=== PATIENT | male | born 1985 | race Caucasian/White ===

== ENCOUNTER 2017-06-20 08:23 | Inpatient (IN) | payer OTHER ==
[2017-06-20] VITALS (7 sets, daily range): BP systolic 113–144; BP diastolic 46–91
[~2017-06-20] VITALS: Ht 167.6 cm; Wt 68.0 kg
--- NOTE | 2017-06-20 08:33 | NUR ---
32/M BIBA FROM HOME CALLED BY FATHER C/O not feeling well SINCE last night. PT STS FEELING worse today. BS in field 480 and repeat 568. PRE-HOSPITAL IV 22G NOTED TO NELI, 100ML NS GIVEN IN FIELD. PT C/O sob, tachypnea. HX autism, dm, hyperlipidemia. MEDS lipitor, buspirone, klonopin, vasotec, synthroid, coreg, wellbutrin, fluvoxamine. NO MEDS FOR DM NOTED IN PT'S BAG. DENIES N/V/D; SKIN IS PINK/WARM/DRY; AAOX3; LUNGS CLEAR BL BUT PT TACHYPNEIC; HR TACHYCARDIC; PT DENIES ANY FEVER, OR CP AT THIS TIME; VSS; PATIENT POSITIONED FOR COMFORT; HOB ELEVATED; BEDRAILS UP X2; BED DOWN. ER MD MADE AWARE OF PT STATUS.
--- NOTE | 2017-06-20 08:40 | NUR ---
URINAL GIVEN FOR SAMPLE.
[2017-06-20] MEDS ORDERED: LIP80 PO (08:43)
[2017-06-20] MEDS ORDERED: BUS5 PO (08:43)
[2017-06-20] MEDS ORDERED: SYN.075 PO (08:43)
[2017-06-20] MEDS ORDERED: CARV25TA PO (08:43)
[2017-06-20] MEDS ORDERED: [UNRECOGNIZED DRUG - CODE] PO (08:43)
[2017-06-20] MEDS ORDERED: BUPR-10 PO (08:43)
[2017-06-20] MEDS ORDERED: CLON0.5T PO (08:43)
[2017-06-20] MEDS ORDERED: VAS2.5 PO (08:43)
[2017-06-20 08:57] LABS: HEMATOCRIT 46.5 % (36-52); HEMOGLOBIN 14.8 g/dL (12.0-18.0); MEAN CORPUSCULAR HEMOGLOBIN 28 pg (27-31); MEAN CORPUSCULAR HGB CONC 32 g/dL (33-37); MEAN CORPUSCULAR VOLUME 88 fL (80-94); PLATELET COUNT (AUTO) 392 K/uL (140-450); RED BLOOD CELL COUNT(AUTO) 5.29 MIL/uL (4.20-6.10); RED CELL DISTRIBUTION WIDTH 12.7 % (11.6-13.7); WHITE BLOOD COUNT (AUTO) 26.5 K/uL (4.8-10.8)
[2017-06-20] MEDS ORDERED: NACL 0.9% 1,000 ML IV ONE ×3 (09:15→09:45)
[2017-06-20 09:20] LABS: ALBUMIN 4.1 g/dL (3.4-5.0); ANION GAP 43.6 (8-16); CREATININE 2.5 mg/dL (0.7-1.3); EOSINOPHILS % (MANUAL) 1 % (0-4); LYMPHOCYTES % (MANUAL) 14 % (20-46); MONOCYTES % (MANUAL) 2 % (5-12); POTASSIUM 5.2 mmol/L (3.5-5.1); TOTAL BILIRUBIN 0.5 mg/dL (0.0-1.0)
[2017-06-20 09:30] LABS: CARBON DIOXIDE 6.6 mmol/L (21-32)
--- NOTE | 2017-06-20 09:30 | NUR ---
EKG AT BEDSIDE.
[2017-06-20] MEDS ORDERED: INSULIN HUMAN REGULAR 100 UNITS in NACL 0.9% 100 ML IV ONE (09:40)
--- NOTE | 2017-06-20 10:10 | NUR ---
# 14 FR IN AND OUTH catheter with sterile technique. Immediate return of 230 ml YELLOW urine noted. Bedside drainage bag placed below level of bladder. Urine sample collected and sent to lab. Pt tolerated procedure WELL.
--- NOTE | 2017-06-20 10:15 | NUR ---
INSULIN DRIP AT 5UNITS 5M/HR PER ORDER.
[2017-06-20 10:18] LABS: APPEARANCE,URINE CLEAR (CLEAR); BILIRUBIN,URINE 2+ (NEGATIVE); BLOOD, URINE 1+ (NEGATIVE); COLOR,URINE YELLOW (YELLOW); LEUKOCYTE ESTERASE ,URINE NEGATIVE (NEGATIVE); NITRITE, URINE NEGATIVE (NEGATIVE); PH,URINE 5.5 (5.0-9.0); UGLUCOSE 2+ (NEGATIVE)
[2017-06-20 10:33] LABS: RBC,URINE 3-10 (FEW) /HPF (0-5)
[2017-06-20 10:34] LABS: WBC,URINE 0-5 (RARE) /HPF (0-5)
--- NOTE | 2017-06-20 10:35 | NUR ---
1L VIA N/C TO PT FOR COMFORT MEASURES.
[2017-06-20] MEDS ORDERED: HUM SUBQ (10:38)
[2017-06-20] MEDS ORDERED: LANTUS SUBQ (10:40)
[2017-06-20] MEDS ORDERED: BLOOD GLUCOSE MONITORING 1 DEV DEV FS SCH (10:50)
[2017-06-20] MEDS ORDERED: INSULIN HUMAN REGULAR 100 UNITS in NACL 0.9% 100 ML IV SCH (10:50)
[2017-06-20] MEDS ORDERED: DEXTROSE 50% 50 ML SYR IVP PRN (10:50)
[2017-06-20] MEDS ORDERED: BUPROPION HCL 75 MG PO SCH (11:00)
--- NOTE | 2017-06-20 11:05 | NUR ---
ADMITTED PT FROM ER BY ALAN, PT AWAKE, ALERT, AND ORIENTED. BEDSIDE MONITOR SHOWS [facility] O2 NC 1L/MIN. NO S/S OF RESPIRATORY DISTRESS NOTED. LUNG SOUND CLEAR, ABDOMEN SOFT WITH ACTIVE BOWEL SOUND, PT ABLE TO MOVE ALL HIS EXTREMITIES, PT ON INSULIN DRIP 5 UNITS/HR, POC EXPLAINED TO PT, PT VERBALIZED UNDERSTANDING. CALL LIGHT IN REACH, WILL CONTINUE TO MONITOR.
[2017-06-20] MEDS ORDERED: NACL 0.9% 500 ML IV ONE (11:15)
[2017-06-20 11:21] LABS: FREE T4 (FREE THYROXINE) 1.09 ng/dL (0.76-1.46); THYROID STIMULATING HORMONE 1.36 uIU/mL (0.34-3.74)
[2017-06-20] MEDS: BLOOD GLUCOSE MONITORING 1 DEV DEV FS SCH ×13 (11:25→23:54)
[2017-06-20] MEDS: INSULIN HUMAN REGULAR 100 UNITS in NACL 0.9% 100 ML IV SCH (11:28)
[2017-06-20] MEDS ORDERED: LORazepam 2 MG/ML VIAL IVP SCH ×2 (11:31→12:15)
[2017-06-20 11:38] LABS: BARBITURATE, URINE NEG. ng/ml (NEG <=200); BENZODIAZEPINE, URINE NEG. ng/mL (NEG <=200); CANNABINOID, URINE NEG. ng/mL (NEG <=50); COCAINE, URINE NEG. ng/mL (NEG <=300); OPIATE, URINE NEG. ng/mL (NEG <=2000); PHENCYCLIDINE SCREEN,URINE NEG. ng/mL (NEG <=25)
--- NOTE | 2017-06-20 11:54 | NUR ---
DR.ANITA NAILS STARTED TO INSERT CENTRAL LINE TLC RIJ.TIME OUT DONE
--- NOTE | 2017-06-20 12:15 | NUR ---
UNABLE TO CHECK 1215 FINGER BLOOD SUGAR DUE TO THE CENTRAL LINE INSERTION IS IN PROGRESS.
[2017-06-20 12:46] LABS: ANION GAP 36.3 (8-16); POTASSIUM 5.4 mmol/L (3.5-5.1)
[2017-06-20 12:49] LABS: CARBON DIOXIDE 6.1 mmol/L (21-32)
[2017-06-20 12:50] LABS: MAGNESIUM 2.2 mg/dL (1.8-2.4); PHOSPHORUS 5.5 mg/dL (2.5-4.9)
--- NOTE | 2017-06-20 13:12 | NUR ---
CENTRAL LINE INSERTION DONE, X-RAY TECH AT BEDSIDE.
[2017-06-20] MEDS: NACL 0.9% 1,000 ML IV SCH ×2 (13:15→19:02)
--- NOTE | 2017-06-20 15:00 | NUR ---
1415 FINGER BLOOD SUGAR WAS UNABLE TO BE CHECKED ON TIME DUE TO ACCU-CHECK MACHINE UNABLE TO SCAN PT'S [place]. THEN WENT TO LAB TO REPLACE ANOTHER ACCU-CHECK MACHINE, THIS MACHINE SHUT DOWN AUTOMATICALLY, WENT TO OR TO BORROW ONE ACCU-CHECK MACHINE.
--- NOTE | 2017-06-20 15:45 | NUR ---
PT'S FATHER AT BEDSIDE.
[2017-06-20 16:21] LABS: ANION GAP 30.3 (8-16); CREATININE 1.7 mg/dL (0.7-1.3); POTASSIUM 4.6 mmol/L (3.5-5.1)
[2017-06-20 16:28] LABS: CARBON DIOXIDE 8.3 mmol/L (21-32)
[2017-06-20 16:31] LABS: PHOSPHORUS 3.5 mg/dL (2.5-4.9)
[2017-06-20 17:24] LABS: CHOL/HDL RATIO 2.5 (1-4.5)
--- NOTE | 2017-06-20 19:09 | NUR ---
VBG DONE BY RT VALERIO WITH HELP OF DENILSON VALENZUELA. VBG DRAWN FROM CVP LINE BY DENILSON VALENZUELA. RN NOTIFIED WITH RESULTS BY RT VALERIO.
--- NOTE | 2017-06-20 19:09 | NUR ---
RECEIVED LAB REPORT HCO3 6.1, CALLED RESIDENT OFFICE [phone] NO ANSWER, PAGED [phone], WILL FOLLOW UP.
--- NOTE | 2017-06-20 19:25 | NUR ---
CALLED RESIDENT OFFICE [phone] AGAIN, NOTIFIED HCO3 6.1, PER DR. FLAHERTY ,SHE WILL CHECK PT.
--- NOTE | 2017-06-20 20:00 | NUR ---
REPORT TAKEN FROM DAY NURSE WITH RES[facility]ARE
--- NOTE | 2017-06-20 20:26 | NUR ---
CALLED ADMITTING OFFICE, NOTIFIED THEM PT DOES NOT HAVE PT'S RIGHT IN THE CHART.
[2017-06-20] MEDS ORDERED: FLUVOXAMINE MALEATE 200 MG PO SCH (21:00)
[2017-06-20] MEDS: clonazePAM 0.5 MG TAB PO SCH (21:00)
--- NOTE | 2017-06-20 21:00 | NUR ---
DUE MEDICATION GIVEN NEEDED
[2017-06-20 21:32] LABS: ANION GAP 27.6 (8-16); CREATININE 1.6 mg/dL (0.7-1.3); POTASSIUM 4.3 mmol/L (3.5-5.1)
[2017-06-20 21:33] LABS: CARBON DIOXIDE 9.7 mmol/L (21-32)
[2017-06-20 21:34] LABS: MAGNESIUM 1.9 mg/dL (1.8-2.4); PHOSPHORUS 3.3 mg/dL (2.5-4.9)
--- NOTE | 2017-06-20 22:00 | NUR ---
REPOSITION DONE , INSULIN INFUSION IN PROGRESS,
[2017-06-21] VITALS (12 sets, daily range): BP systolic 113–149; BP diastolic 71–94
--- NOTE | 2017-06-21 | NUR ---
PT 'S ASLEEP, ACCU CHECK DON , INSULIN INFUSION INPROGRESS.
[2017-06-21] MEDS: busPIRone 5 MG TAB PO SCH ×3 (00:01→20:57)
[2017-06-21] MEDS: NACL 0.9% 1,000 ML IV SCH ×5 (00:02→20:42)
[2017-06-21] MEDS: BLOOD GLUCOSE MONITORING 1 DEV DEV FS SCH ×24 (00:30→23:19)
[2017-06-21 00:43] LABS: ANION GAP 25.6 (8-16); CARBON DIOXIDE 10.5 mmol/L (21-32); CREATININE 1.4 mg/dL (0.7-1.3); POTASSIUM 4.1 mmol/L (3.5-5.1)
[2017-06-21 00:48] LABS: MAGNESIUM 1.8 mg/dL (1.8-2.4)
--- NOTE | 2017-06-21 02:00 | NUR ---
RE POSITION DONE , VOIDED WITH TOTAL URINE OUT PUT 1000 MLS , YELLOW COLOR NOTED
--- NOTE | 2017-06-21 04:00 | NUR ---
REPOSITION DONE, DUE ACCU CHECK DONE
--- NOTE | 2017-06-21 06:00 | NUR ---
ACCU CHECK DONE .EDUCATED NEEDED
[2017-06-21] MEDS: LEVOTHYROXINE 0.075 MG TAB PO SCH (06:30)
--- NOTE | 2017-06-21 07:15 | NUR ---
REPORT ENDORSE TO DAY NURSE WITH [facility]
--- NOTE | 2017-06-21 07:25 | NUR ---
CONTINUITY OF CARE REPORTED TO CRYSTAL OREILLY. PATIENT IN STABLE CONDITION. Addendum: 06/21/17 at 1018 by Lucretia Jimenez RN WRONG CHARTING
--- NOTE | 2017-06-21 07:30 | NUR ---
RECEIVED A REPORT FROM DENILSON FARIAS. PT IS ALERT AND ABLE TO MAKE NEEDS KNOWN. DENIES ANY PAIN OR DISCOMFORT AT THIS TIME. ST ON THE MONITOR. NO S/SX OF ACUTE DISTRESS NOTED. SKIN WARM TO TOUCH. IV SITE TO RT IJ [id number] AND LT HAND #22G. PATENT AND INTACT. CONTINUE ON INSULIN DRIP ORDERED. ON SCD FOR VTE PROPHYLAXIS. SAFETY PRECAUTION. BED IN LOW POSITION, CALL LIGHT WITHIN REACH. WILL CONTINUE TO MONITOR.
[2017-06-21] MEDS ORDERED: DOCUSATE SODIUM 250 MG GELCAP PO PRN (07:35)
[2017-06-21 07:39] LABS: T3 UPTAKE 30 % (24-39); T4 (THYROXINE) 6.4 ug/dL (4.5-12.0)
--- NOTE | 2017-06-21 07:52 | NUR ---
RESIDENT PHYSICIAN DR. NAILS MADE AWARE OF ABG REPORT, HCO3 11.2. NO NEW ORDERS MADE AT THIS TIME.
[2017-06-21] MEDS: DEXT 5% / NACL 0.45% 1,000 ML IV SCH ×3 (08:00→17:00)
[2017-06-21 08:08] LABS: BASOPHILS # (AUTO) 0.2 K/uL (0.00-0.22); EOSINOPHILS # (AUTO) 0.1 K/uL (0-0.4); EOSINOPHILS % (AUTO) 0.7 % (0.0-4.0); HEMATOCRIT 37.3 % (36-52); HEMOGLOBIN 12.2 g/dL (12.0-18.0); LYMPHOCYTES # (AUTO) 1.4 K/uL (2.0-11.5); LYMPHOCYTES % (AUTO) 11.9 % (20.5-51.1); MEAN CORPUSCULAR HEMOGLOBIN 28 pg (27-31); MEAN CORPUSCULAR HGB CONC 33 g/dL (33-37); MEAN CORPUSCULAR VOLUME 87 fL (80-94); MONOCYTES # (AUTO) 1.1 K/uL (0.8-1.0); MONOCYTES % (AUTO) 9.1 % (1.7-9.3); NEUTROPHILS # (AUTO) 8.9 K/uL (1.8-7.7); NEUTROPHILS % (AUTO) 76.3 % (42.2-75.2); PLATELET COUNT (AUTO) 268 K/uL (140-450); RED BLOOD CELL COUNT(AUTO) 4.31 MIL/uL (4.20-6.10); RED CELL DISTRIBUTION WIDTH 12.6 % (11.6-13.7); WHITE BLOOD COUNT (AUTO) 11.7 K/uL (4.8-10.8)
--- NOTE | 2017-06-21 08:13 | NUR ---
PATIENT HAS BEEN SCREENED AND CATEGORIZED HIGH RISK. PATIENT WILL BE SEEN WITHIN 1-2 DAYS OF REFERRAL. 06/22/[address]
--- NOTE | 2017-06-21 08:15 | NUR ---
DR. RAMÍREZ AND GROUP ROUNDING ON THE PATIENT AT THIS TIME. WILL FOLLOW UP WITH NEW ORDERS.
[2017-06-21 08:20] LABS: ANION GAP 21.2 (8-16); CARBON DIOXIDE 13.6 mmol/L (21-32); CREATININE 1.4 mg/dL (0.7-1.3); POTASSIUM 3.8 mmol/L (3.5-5.1)
--- NOTE | 2017-06-21 08:30 | NUR ---
PT RECEIVED BREAKFAST TRAY AND ATE 90%.
--- NOTE | 2017-06-21 08:30 | NUR ---
DR. RAMÍREZ MADE AWARE OF GLUCOSE LEVEL OF 190. INSULIN DRIP KEPT ON 1 UNIT/HR.
[2017-06-21] MEDS: ATORVASTATIN 80 MG TAB PO SCH (08:33)
[2017-06-21] MEDS: clonazePAM 0.5 MG TAB PO SCH ×2 (08:35→20:58)
[2017-06-21] MEDS: CARVEDILOL 12.5 MG TAB PO SCH (08:36)
[2017-06-21] MEDS: ENALAPRIL 2.5 MG TAB PO SCH (08:36)
--- NOTE | 2017-06-21 08:40 | NUR ---
PT TOLERATED MEDICATION WELL. WILL CONTINUE TO MONITOR
--- NOTE | 2017-06-21 09:32 | NUR ---
INSULIN DRIP INCREASED TO 2 UNITS/HR. BLOOD SUGAR 236
--- NOTE | 2017-06-21 10:15 | NUR ---
DR. RAMÍREZ AT BEDSIDE AND WILL FOLLOW UP ON ORDERS
--- NOTE | 2017-06-21 10:18 | NUR ---
CONTINUITY OF CARE REPORTED TO CRYSTAL OREILLY. PATIENT IN STABLE CONDITION.
--- NOTE | 2017-06-21 10:48 | NUR ---
06/21/17 RD INITIAL ASSESSMENT COMPLETED PLEASE REFER TO NUTRITION ASSESSMENT UNDER CARE ACTIVITY FOR ESTIMATED NEEDS. RECOMMENDATIONS: 1. CONTINUE 60GM CCHO DIET TOLERATED. 2. RD WILL FOLLOW UP IN 2-3 DAYS; HIGH RISK. KARLIE ACEVEDO RD
--- NOTE | 2017-06-21 11:26 | NUR ---
DR. APARICIO AT BEDSIDE AND WILL FOLLOW UP ON ORDERS
[2017-06-21 12:09] LABS: BASOPHILS # (AUTO) 0.2 K/uL (0.00-0.22); BASOPHILS % (AUTO) 1.7 % (0.0-2.0); EOSINOPHILS # (AUTO) 0.1 K/uL (0-0.4); EOSINOPHILS % (AUTO) 1.1 % (0.0-4.0); HEMOGLOBIN 12.3 g/dL (12.0-18.0); LYMPHOCYTES # (AUTO) 1.7 K/uL (2.0-11.5); LYMPHOCYTES % (AUTO) 15.1 % (20.5-51.1); MEAN CORPUSCULAR HEMOGLOBIN 29 pg (27-31); MEAN CORPUSCULAR HGB CONC 33 g/dL (33-37); MEAN CORPUSCULAR VOLUME 86 fL (80-94); MONOCYTES # (AUTO) 0.7 K/uL (0.8-1.0); MONOCYTES % (AUTO) 6.5 % (1.7-9.3); NEUTROPHILS # (AUTO) 8.7 K/uL (1.8-7.7); NEUTROPHILS % (AUTO) 75.6 % (42.2-75.2); PLATELET COUNT (AUTO) 250 K/uL (140-450); RED BLOOD CELL COUNT(AUTO) 4.29 MIL/uL (4.20-6.10); RED CELL DISTRIBUTION WIDTH 12.8 % (11.6-13.7); WHITE BLOOD COUNT (AUTO) 11.4 K/uL (4.8-10.8)
[2017-06-21 12:17] LABS: ANION GAP 19.4 (8-16); CARBON DIOXIDE 15.2 mmol/L (21-32); CREATININE 1.4 mg/dL (0.7-1.3); POTASSIUM 3.6 mmol/L (3.5-5.1)
[2017-06-21 12:20] LABS: MAGNESIUM 2.1 mg/dL (1.8-2.4)
--- NOTE | 2017-06-21 12:30 | NUR ---
PT RECEIVED LUNCH TRAY AND ATE 50%
--- NOTE | 2017-06-21 13:00 | NUR ---
PT'S FAMILY AT BEDSIDE AND UPDATED PT'S STATUS.
[2017-06-21] MEDS ORDERED: PATIENTS OWN TABLET PO SCH (13:05)
[2017-06-21] MEDS ORDERED: buPROPion 75 MG TAB PO SCH (13:05)
[2017-06-21] MEDS ORDERED: PNEUMOCOCCAL VACCINE 23 MCG/0.5 ML VIAL IMVAC SCH (13:15)
--- NOTE | 2017-06-21 14:58 | NUR ---
PT IS ASLEEP, EASILY AWAKE TO VOICE. NO S/SX OF ACUTE RESPIRATORY DISTRESS.
--- NOTE | 2017-06-21 17:20 | NUR ---
DR. DIAL AT BEDSIDE AND WILL FOLLOW UP ON ORDERS. PT IS STABLE. PROVIDED DINNER TRAY.
--- NOTE | 2017-06-21 17:53 | NUR ---
PT REFUSED BED BATH AND ORAL CARE.
[2017-06-21 18:45] LABS: ANION GAP 15.2 (8-16); CARBON DIOXIDE 18.2 mmol/L (21-32); CREATININE 1.3 mg/dL (0.7-1.3); MAGNESIUM 1.9 mg/dL (1.8-2.4); PHOSPHORUS 1.9 mg/dL (2.5-4.9); POTASSIUM 3.4 mmol/L (3.5-5.1)
--- NOTE | 2017-06-21 18:58 | NUR ---
PT SLEEPING IN BED BUT EASILY AWAKING BY ASSESSMENT, NO S/S OF RESPIRATORY DISTRESS NOTED. SAFETY MAINTAINED, PT VERBALIZED HE FEELS OK, CALL LIGHT IN REACH.
--- NOTE | 2017-06-21 19:20 | NUR ---
REPORT GIVEN TO DENILSON PHILIPPE. PT STABLE
--- NOTE | 2017-06-21 19:35 | NUR ---
PATIENT IS AWAKE, ORIENTED TO PERSON, PLACE, DATE AND TIME. SKIN WARM TO TOUCH WNL, TOENAILS WNL, NO EDEMA, WITH HAIR GROWTH AND +2 BILATERAL PEDAL PULSES. RIJ CENTRAL LINE PATENT AND INTACT. ON INSULIN DRIP AT 3 UNITS/H. URINE AND BOWEL CONTINENT, ABLE TO MAKE NEEDS KNOWN. ABLE TO TURN SELF WITH NO ASSISTANCE. ON ROOM AIR. CALL LIGHT WITHIN REACH. WILL MONITOR PATIENT.
--- NOTE | 2017-06-21 19:35 | NUR ---
ASSUMED CONTINUITY OF CARE FROM DAY SHIFT NURSE. PATIENT IN STABLE CONDITION.
[2017-06-21] MEDS: FLUVOXAMINE MALEATE PO SCH (20:58)
[2017-06-21] MEDS ORDERED: COMMUNICATION ORDER MC SCH (21:00)
[2017-06-21] MEDS ORDERED: SODIUM PHOS / POTASSIUM PHOS 1 PKT PDR PO SCH (21:00)
[2017-06-21] MEDS ORDERED: SODIUM PHOS / POTASSIUM PHOS 1 PKT PDR ONE (21:09)
[2017-06-21 21:10] LABS: ANION GAP 14.5 (8-16); CARBON DIOXIDE 17.7 mmol/L (21-32); CREATININE 1.3 mg/dL (0.7-1.3); MAGNESIUM 1.9 mg/dL (1.8-2.4); PHOSPHORUS 1.8 mg/dL (2.5-4.9); POTASSIUM 3.2 mmol/L (3.5-5.1)
--- NOTE | 2017-06-21 21:10 | NUR ---
PATIENT'S FAMILY AT BEDSIDE AT THIS TIME.
--- NOTE | 2017-06-21 21:14 | NUR ---
BLOOD SUGAR 266. INSULIN DRIP KEPT AT 3 UNITS/H.
[2017-06-21] MEDS: INSULIN HUMAN REGULAR 100 UNITS in NACL 0.9% 100 ML IV SCH (21:38)
--- NOTE | 2017-06-21 22:20 | NUR ---
BS 248. INSULIN DRIP DECREASED TO 2 UNITS/HR.
--- NOTE | 2017-06-21 22:42 | NUR ---
PATIENT APPEARS TO BE SLEEPING COMFORTABLY AT THIS TIME.
[2017-06-22] VITALS (10 sets, daily range): BP systolic 102–148; BP diastolic 70–86
[2017-06-22] MEDS: BLOOD GLUCOSE MONITORING 1 DEV DEV FS SCH ×18 (00:20→23:40)
[2017-06-22 00:36] LABS: ANION GAP 13.4 (8-16); CARBON DIOXIDE 18.7 mmol/L (21-32); CREATININE 1.2 mg/dL (0.7-1.3); POTASSIUM 3.1 mmol/L (3.5-5.1)
[2017-06-22 00:41] LABS: PHOSPHORUS 1.9 mg/dL (2.5-4.9)
[2017-06-22] MEDS ORDERED: POTASSIUM PHOSPHATE 15 MM in NACL 0.9% 250 ML IV ONE ×2 (00:55→09:35)
--- NOTE | 2017-06-22 02:15 | NUR ---
RESIDENT PHYSICIAN DR DIAL MADE AWARE THAT POTASSIUM PHOS IS NOT AVAILABLE AT THIS TIME, STATED THAT WILL HOLD OFF ON THE ORDER AND WILL MONITOR LABS FOR NOW.
--- NOTE | 2017-06-22 04:11 | NUR ---
PATIENT IS COMFORTABLY RESTING AT THIS TIME.
[2017-06-22 04:40] LABS: HEMATOCRIT 31.7 % (36-52); HEMOGLOBIN 10.3 g/dL (12.0-18.0); MEAN CORPUSCULAR HEMOGLOBIN 28 pg (27-31); MEAN CORPUSCULAR HGB CONC 33 g/dL (33-37); MEAN CORPUSCULAR VOLUME 86 fL (80-94); PLATELET COUNT (AUTO) 199 K/uL (140-450); RED BLOOD CELL COUNT(AUTO) 3.68 MIL/uL (4.20-6.10); RED CELL DISTRIBUTION WIDTH 12.9 % (11.6-13.7); WHITE BLOOD COUNT (AUTO) 6.8 K/uL (4.8-10.8)
[2017-06-22 04:47] LABS: ANION GAP 11.7 (8-16); CARBON DIOXIDE 20.3 mmol/L (21-32)
[2017-06-22 04:51] LABS: MAGNESIUM 1.9 mg/dL (1.8-2.4); PHOSPHORUS 1.9 mg/dL (2.5-4.9)
[2017-06-22 04:56] LABS: BASOPHILS % (MANUAL) 1 % (0-2); EOSINOPHILS % (MANUAL) 1 % (0-4); LYMPHOCYTES % (MANUAL) 23 % (20-46); MONOCYTES % (MANUAL) 10 % (5-12)
--- NOTE | 2017-06-22 05:20 | NUR ---
BS 187. INSULIN DRIP DECREASED TO 1 UNIT/HR.
[2017-06-22] MEDS: NACL 0.9% 1,000 ML IV SCH ×3 (05:25→20:55)
--- NOTE | 2017-06-22 05:26 | NUR ---
MORNING CARE RENDERED. ENCOURAGED AND ASSISTED PATIENT TO GET OUT OF BED, PATIENT TOLERATED WELL.
[2017-06-22] MEDS: DEXT 5% / NACL 0.45% 1,000 ML IV SCH (06:03)
[2017-06-22] MEDS: LEVOTHYROXINE 0.075 MG TAB PO SCH (06:10)
[2017-06-22] MEDS ORDERED: KCL 20 MEQ/WATER INJ PREMIX 200 ML IV SCH (06:15)
[2017-06-22] MEDS ORDERED: BISACODYL 10 MG SUPP RC SCH (06:35)
--- NOTE | 2017-06-22 07:00 | NUR ---
PATIENT REFUSED DULCOLAX, STATED THAT HE WANTS TO TRY TO USE THE COMMODE FIRST. WILL ENDORSE THE AM SHIFT.
--- NOTE | 2017-06-22 07:20 | NUR ---
REPORT GIVEN TO AM RN FOR CONTINUITY OF CARE. PATIENT IN STABLE CONDITION.
--- NOTE | 2017-06-22 07:20 | NUR ---
RECEIVED A REPORT FROM DENILSON VELASQUEZ. PT IS ALERT AND ABLE TO MAKE NEEDS KNOWN. DENIES ANY PAIN OR DISCOMFORT AND NO S/SX OF ACUTE DISTRESS NOTED. SR ON THE MONITOR. USING OF URINAL FOR URINATION. ON INSULIN DRIP ORDERED. IV SITE TO RIGHT IJ 3X LUMENS. PATENT AND INTACT. SKIN WARM TO TOUCH. ABLE TO MOVE ALL EXTREMITIES. SAFETY PRECAUTION. BED IN LOW POSITION AND CALL LIGHT WITHIN REACH. WILL CONTINUE TO MONITOR.
[2017-06-22] MEDS: FLUVOXAMINE MALEATE PO SCH ×2 (08:05→20:27)
[2017-06-22] MEDS: CARVEDILOL 12.5 MG TAB PO SCH (08:05)
[2017-06-22] MEDS: clonazePAM 0.5 MG TAB PO SCH ×2 (08:06→20:31)
[2017-06-22] MEDS: ENALAPRIL 2.5 MG TAB PO SCH (08:08)
[2017-06-22] MEDS: busPIRone 5 MG TAB PO SCH ×2 (08:08→20:26)
[2017-06-22] MEDS: ATORVASTATIN 80 MG TAB PO SCH (08:09)
[2017-06-22] MEDS: buPROPion 75 MG TAB PO SCH (08:09)
[2017-06-22 08:11] LABS: CARBON DIOXIDE 19.3 mmol/L (21-32); CREATININE 1.1 mg/dL (0.7-1.3); POTASSIUM 3.3 mmol/L (3.5-5.1)
[2017-06-22 08:16] LABS: MAGNESIUM 1.9 mg/dL (1.8-2.4); PHOSPHORUS 1.7 mg/dL (2.5-4.9)
[2017-06-22] MEDS ORDERED: buPROPion 150 MG TABER PO SCH (09:00)
[2017-06-22] MEDS ORDERED: INSULIN DETEMIR 100 UNITS/ML 10 ML VIAL SUBQ SCH (09:00)
--- NOTE | 2017-06-22 09:00 | NUR ---
PT TOLERATED MEDICATIONS WELL. WILL CONTINUE TO MONITOR
--- NOTE | 2017-06-22 11:03 | NUR ---
PT STABLE, NO S/SX OF ACUTE DISTRESS. WILL CONTINUE TO MONITOR
[2017-06-22] MEDS ORDERED: BLOOD GLUCOSE MONITORING 1 DEV DEV FS SCH (11:30)
[2017-06-22 12:37] LABS: CARBON DIOXIDE 20.7 mmol/L (21-32); CREATININE 0.9 mg/dL (0.7-1.3); POTASSIUM 3.7 mmol/L (3.5-5.1)
[2017-06-22 12:41] LABS: MAGNESIUM 1.9 mg/dL (1.8-2.4); PHOSPHORUS 2.1 mg/dL (2.5-4.9)
--- NOTE | 2017-06-22 12:48 | NUR ---
PT IS EATING LUNCH AND PT'S MOTHER IS AT BEDSIDE.
--- NOTE | 2017-06-22 13:40 | NUR ---
ECHOCARDIOGRAM DONE AT BEDSIDE. PT STABLE AND NO S/SX OF ACUTE DISTRESS.
--- NOTE | 2017-06-22 14:19 | NUR ---
DR. NAILS AT BEDSIDE AND WILL FOLLOW UP ON ORDERS
--- NOTE | 2017-06-22 14:31 | NUR ---
PT'S MOTHER WAS INFORMED THAT PT WILL BE TRANSFERRED TO TELE UNIT TODAY.
[2017-06-22] MEDS: INSULIN LISPRO SLIDING SCALE 100 UNITS/ML VIAL SUBQ PRN ×2 (16:00→20:32)
--- NOTE | 2017-06-22 16:20 | NUR ---
PT TRANSFERRED TO TELEMETRY UNIT AND REPORT GIVEN TO DENILSON STODDARD. PT STABLE, NO S/SX OF ACUTE DISTRESS.
--- NOTE | 2017-06-22 16:25 | NUR ---
RECEIVED REPORT FROM DENILSON GUERRIER.
--- NOTE | 2017-06-22 16:50 | NUR ---
RECEIVED TRANSFER PATIENT FROM ICU. ASSISTED IN TRANSFERRING PATIENT INTO [facility] BED, HE WAS ABLE TO SCOOT OVER TO BED BY HIMSELF. TOLERATED WELL. ALERT AND ORIENTED X4. NO SIGNS AND SYMPTOMS OF DISTRESS NOTED AT THIS TIME. HAS LEFT IJ TRIPLE LUMEN AND IS INFUSING NS AT 125 ML/HR. SITE IS CLEAN, DRY AND INTACT. HAS AN IV SALINE LOCK ON RIGHT HAND 22G, CLEAN, DRY AND PATENT. PATIENT SKIN IS INTACT. NO SIGNS AND SYMPTOMS OF RESPIRATORY DISTRESS NOTED, LUNG SOUNDS ARE CLEAR. ABDOMINAL QUADRANTS ACTIVE UPON AUSCULTATION. ORIENTED PATIENT TO ROOM, INSTRUCTED CHAIR LIFT OPERATOR LIGHT, PLACED WITHIN REACH, BED AT LOWEST POSITION, HOB AT 45 DEGREES, SIDERAILS UP X2, PATIENT VERBALIZED UNDERSTANDING. WILL CONTINUE TO MONITOR.
--- NOTE | 2017-06-22 19:15 | NUR ---
ENDORSED PATIENT TO EMERGENCY ROOM SPECIALIST RN. PATIENT STABLE AT THIS TIME. FAMILY IS AT BEDSIDE.
--- NOTE | 2017-06-22 19:20 | NUR ---
RECEIVED REPORT FROM DAY SHIFT NURSE AT PT BEDSIDE. PT IS A/OX4 ON ROOM AIR, PT HAS 20 GAUGE IV ON HIS RIGHT HAND, SL INTACT, AND A RIGHT IJ TRIPLE LUMEN INFUSING NS@125ML/HR, ASYMPTOMATIC AND INTACT. PT SKIN IS INTACT. NO SIGNS OF DISTRESS NOTED, DISCUSSED PLAN OF CARE WITH PT, PT VERBALIZED UNDERSTANDING, PT MOTHER IS AT BEDSIDE. BED IN LOW POSITION, CALL LIGHT IS WITHIN REACH. WILL CONTINUE TO MONITOR.
--- NOTE | 2017-06-22 20:40 | NUR ---
ADMINISTERED SCHEDULED MEDICATIONS. PT TOLERATED WELL. PT STABLE, NO SIGNS OF DISTRESS NOTED. BED IN LOW POSITION, CALL LIGHT IS WITHIN REACH. WILL CONTINUE TO MONITOR.
[2017-06-22 21:37] LABS: ANION GAP 17.6 (8-16); CARBON DIOXIDE 16.8 mmol/L (21-32); CREATININE 0.9 mg/dL (0.7-1.3); POTASSIUM 3.4 mmol/L (3.5-5.1)
[2017-06-22 21:40] LABS: MAGNESIUM 1.7 mg/dL (1.8-2.4)
--- NOTE | 2017-06-22 22:00 | NUR ---
MAHOGANY BLOOD FROM PATIENT'S IJ TRIPLE LUMEN CATH FOR INSPECTOR TOOL. PT TOLERATED WELL. PT STABLE, NO SIGNS OF DISTRESS NOTED. BED IN LOW POSITION, CALL LIGHT IS WITHIN REACH. WILL CONTINUE TO MONITOR.
[2017-06-23] VITALS: BP 129/78
--- NOTE | 2017-06-23 00:15 | NUR ---
PT BLOOD SUGAR 281, WILL GIVE 6 UNITS OF INSULIN. PT IS STABLE, NO SIGNS OF DISTRESS NOTED. BED IN LOW POSITION, CALL LIGHT IS WITHIN REACH. WILL CONTINUE TO MONITOR.
[2017-06-23] MEDS: INSULIN LISPRO SLIDING SCALE 100 UNITS/ML VIAL SUBQ PRN ×4 (00:50→20:32)
--- NOTE | 2017-06-23 02:40 | NUR ---
PT RESTING, SLEEPING, FREE OF DISTRESS. PT STABLE. BED IN LOW POSITION, CALL LIGHT WITHIN REACH. WILL CONTINUE TO MONITOR.
[2017-06-23 04:00] VITALS: BP 138/80
[2017-06-23] MEDS: BLOOD GLUCOSE MONITORING 1 DEV DEV FS SCH ×5 (04:08→20:08)
--- NOTE | 2017-06-23 04:18 | NUR ---
ADMINISTERED 4 MORE UNITS OF INSULIN FOR BLOOD SUGAR OF 202. VITAL SIGNS WNL. PT RESTING, FREE OF DISTRESS. PT STABLE. BED IN LOW POSITION, CALL LIGHT WITHIN REACH. WILL CONTINUE TO MONITOR.
--- NOTE | 2017-06-23 05:11 | NUR ---
MAHOGANY BLOOD FROM PATIENT'S IJ TRIPLE LUMEN CATH FOR SUPERVISOR ROUGH END. PT TOLERATED WELL. PT STABLE, NO SIGNS OF DISTRESS NOTED. BED IN LOW POSITION, CALL LIGHT IS WITHIN REACH. WILL CONTINUE TO MONITOR.
[2017-06-23] MEDS: NACL 0.9% 1,000 ML IV SCH ×3 (05:23→21:08)
[2017-06-23] MEDS: LEVOTHYROXINE 0.075 MG TAB PO SCH (06:04)
[2017-06-23 06:05] LABS: BASOPHILS # (AUTO) 0.1 K/uL (0.00-0.22); BASOPHILS % (AUTO) 2.3 % (0.0-2.0); EOSINOPHILS # (AUTO) 0.2 K/uL (0-0.4); EOSINOPHILS % (AUTO) 3.9 % (0.0-4.0); HEMATOCRIT 32.1 % (36-52); HEMOGLOBIN 10.3 g/dL (12.0-18.0); LYMPHOCYTES # (AUTO) 1.8 K/uL (2.0-11.5); MEAN CORPUSCULAR HEMOGLOBIN 28 pg (27-31); MEAN CORPUSCULAR HGB CONC 32 g/dL (33-37); MEAN CORPUSCULAR VOLUME 87 fL (80-94); MONOCYTES # (AUTO) 0.5 K/uL (0.8-1.0); MONOCYTES % (AUTO) 9.4 % (1.7-9.3); NEUTROPHILS # (AUTO) 3.2 K/uL (1.8-7.7); NEUTROPHILS % (AUTO) 53.4 % (42.2-75.2); PLATELET COUNT (AUTO) 184 K/uL (140-450); RED BLOOD CELL COUNT(AUTO) 3.68 MIL/uL (4.20-6.10); RED CELL DISTRIBUTION WIDTH 12.8 % (11.6-13.7); WHITE BLOOD COUNT (AUTO) 5.8 K/uL (4.8-10.8)
--- NOTE | 2017-06-23 06:18 | NUR ---
PT STABLE, NO SIGNS OF DISTRESS NOTED. BED IN LOW POSITION, CALL LIGHT IS WITHIN REACH. WILL CONTINUE TO MONITOR.
[2017-06-23 06:21] LABS: ANION GAP 14.8 (8-16); CARBON DIOXIDE 20.3 mmol/L (21-32); CREATININE 0.8 mg/dL (0.7-1.3); POTASSIUM 3.1 mmol/L (3.5-5.1)
[2017-06-23 06:26] LABS: MAGNESIUM 1.6 mg/dL (1.8-2.4); PHOSPHORUS 2.5 mg/dL (2.5-4.9)
[2017-06-23] MEDS ORDERED: KCL 20 MEQ/WATER INJ PREMIX 200 ML IV SCH (07:30)
--- NOTE | 2017-06-23 07:30 | NUR ---
ENDORSED PT TO DAY SHIFT RN AT BEDSIDE FOR CONTINUITY OF CARE. PT IS STABLE.
[2017-06-23 08:35] VITALS: BP 146/85
[2017-06-23] MEDS: ENALAPRIL 2.5 MG TAB PO SCH (09:45)
--- NOTE | 2017-06-23 09:45 | NUR ---
PATIENT AWAKE ALERT AND ORIENTED. VITAL SIGNS WITHIN NORMAL LIMITS, PATIENT DENIES PAIN OR DISCOMFORT. GIVEN AM INSULIN PER ORDER
[2017-06-23] MEDS: busPIRone 5 MG TAB PO SCH ×2 (09:46→20:28)
[2017-06-23] MEDS: buPROPion 75 MG TAB PO SCH (09:46)
[2017-06-23] MEDS: ATORVASTATIN 80 MG TAB PO SCH (09:46)
[2017-06-23] MEDS: FLUVOXAMINE MALEATE PO SCH ×2 (09:51→21:00)
[2017-06-23] MEDS: clonazePAM 0.5 MG TAB PO SCH ×2 (09:57→20:31)
[2017-06-23] MEDS: INSULIN DETEMIR 100 UNITS/ML 10 ML VIAL SUBQ SCH (09:58)
[2017-06-23] MEDS ORDERED: CARVEDILOL 12.5 MG TAB PO SCH (12:27)
[2017-06-23 12:33] VITALS: BP 147/97
--- NOTE | 2017-06-23 12:45 | NUR ---
BLOOD SUGAR AT 347 GIVEN 8UNITS HUMALOG COVERAGE PER ORDER
[2017-06-23] MEDS ORDERED: MAG SULF 2000 MG/WATER PREMIX 100 ML IV SCH (15:00)
[2017-06-23] MEDS ORDERED: LORazepam 2 MG/ML VIAL IVP PRN (16:10)
[2017-06-23 17:00] VITALS: BP 126/73
--- NOTE | 2017-06-23 17:24 | NUR ---
LAST BLOOD SUGAR 241 GIVEN 4UNIT HUMALOG INSULIN PRE ORDER. MOTHER AT BEDSIDE AND STATES PATIENTS BLOOD SUGAR AT HOME IS USUALLY BETWEEN 200-300 AND IS NOT DIET RELATED
--- NOTE | 2017-06-23 19:30 | NUR ---
RECEIVED REPORT FROM DAY RN AT BEDSIDE, PATIENT IS AAO X4 ON ROOM AIR, NO SOB OR SIGN OF DISTRESS AT THIS TIME. PATIENT HAS RIGHT IJ CENTRAL LINE X3 LUMEN PATENT AND INTACT, AND RIGHT HAND 22G SL; PATENT AND INTACT. SKIN INTACT, PATIENT DENIES PAIN AT THIS TIME. DISCUSSED PLAN OF CARE WITH PATIENT, PATIENT VERBALIZED UNDERSTANDING. CALL LIGHT WITHIN REACH. WILL CONTINUE TO MONITOR
--- NOTE | 2017-06-23 19:31 | NUR ---
PATIENT ENDORSED TO CORNEL ON COMING RN. PATIENT IS RESTING QUIETLY AT THIS TIME READY TO GO TO SLEEP. NO C/O PAIN OR DISCOMFORT VOICED BUT WANTING TO GO HOME TOMORROW. NO S/S OF HYPERGLYCEMIA NOTED AT THIS TIME.
[2017-06-23 20:00] VITALS: BP 122/73
--- NOTE | 2017-06-23 20:43 | NUR ---
PM MEDS ADMINISTERED, PATIENT TOLERATED WELL, PATIENT RESTING IN BED. NO SIGN OF DISTRESS. REMOVED TELE BOX. PATIENT MED-SURG PER MD ORDER. CALL LIGHT WITHIN REACH. WILL CONTINUE TO MONITOR
[2017-06-24] VITALS: BP 125/73
--- NOTE | 2017-06-24 | NUR ---
VITAL SIGNS STABLE, NO SOB OR SIGN OF DISTRESS AT THIS TIME. CALL LIGHT WITHIN REACH. WILL CONTINUE TO MONITOR.
[2017-06-24] MEDS: INSULIN LISPRO SLIDING SCALE 100 UNITS/ML VIAL SUBQ PRN ×6 (01:01→21:27)
--- NOTE | 2017-06-24 02:40 | NUR ---
PATIENT SLEEPING, NO SIGN OF DISTRESS, CALL LIGHT WITHIN REACH. WILL CONTINUE TO MONITOR
[2017-06-24] MEDS: BLOOD GLUCOSE MONITORING 1 DEV DEV FS SCH ×6 (04:09→21:25)
--- NOTE | 2017-06-24 04:20 | NUR ---
PATIENT SLEEPING, BS CHECK 192. CALL LIGHT WITHIN REACH. WILL CONTINUE TO MONITOR
[2017-06-24] MEDS: LEVOTHYROXINE 0.075 MG TAB PO SCH (05:41)
--- NOTE | 2017-06-24 07:11 | NUR ---
ENDORSED PATIENT TO DAY RN AT BEDSIDE, PATIENT IN STABLE CONDITION
--- NOTE | 2017-06-24 07:12 | NUR ---
RECEIVED HANDOFF REPORT FROM PM RN. PATIENT A&OX4. IV SITE PATENT AND INTACT. PATIENT IJ TRIPLE LUMEN PATENT AND INTACT. NO SIGNS OR SYMPTOMS OF ACUTE DISTRESS NOTED. CALL LIGHT WITHIN REACH. WILL CONTINUE TO MONITOR.
[2017-06-24 07:47] VITALS: BP 131/76
--- NOTE | 2017-06-24 08:56 | NUR ---
AM MEDICATIONS GIVEN WITH EDUCATION. PT VERBALIZED UNDERSTANDING. WILL CONTINUE TO MONITOR.
[2017-06-24] MEDS: ATORVASTATIN 80 MG TAB PO SCH (08:58)
[2017-06-24] MEDS: CARVEDILOL 12.5 MG TAB PO SCH (08:58)
[2017-06-24] MEDS: buPROPion 75 MG TAB PO SCH (08:59)
[2017-06-24] MEDS: clonazePAM 0.5 MG TAB PO SCH ×2 (08:59→21:37)
[2017-06-24] MEDS: busPIRone 5 MG TAB PO SCH ×2 (09:00→21:31)
[2017-06-24] MEDS: ENALAPRIL 2.5 MG TAB PO SCH (09:00)
[2017-06-24] MEDS: INSULIN DETEMIR 100 UNITS/ML 10 ML VIAL SUBQ SCH (09:02)
[2017-06-24] MEDS: FLUVOXAMINE MALEATE PO SCH ×2 (09:39→21:50)
--- NOTE | 2017-06-24 12:38 | NUR ---
PATIENT AWAKE IN BED. PATIENT DENIES PAIN. NO SIGNS OR SYMPTOMS OF ACUTE DISTRESS NOTED. CALL LIGHT WITHIN REACH. WILL CONTINUE TO MONITOR.
[2017-06-24 13:25] LABS: HEMATOCRIT 33.1 % (36-52); MEAN CORPUSCULAR HEMOGLOBIN 28 pg (27-31); MEAN CORPUSCULAR HGB CONC 33 g/dL (33-37); MEAN CORPUSCULAR VOLUME 84 fL (80-94); PLATELET COUNT (AUTO) 194 K/uL (140-450); RED BLOOD CELL COUNT(AUTO) 3.93 MIL/uL (4.20-6.10); RED CELL DISTRIBUTION WIDTH 12.5 % (11.6-13.7); WHITE BLOOD COUNT (AUTO) 5.3 K/uL (4.8-10.8)
[2017-06-24 13:36] LABS: ANION GAP 18.2 (8-16); CARBON DIOXIDE 18.5 mmol/L (21-32); CREATININE 1.1 mg/dL (0.7-1.3); POTASSIUM 3.7 mmol/L (3.5-5.1)
[2017-06-24 13:39] LABS: PHOSPHORUS 2.7 mg/dL (2.5-4.9)
[2017-06-24] MEDS: NACL 0.9% 1,000 ML IV SCH (14:03)
[2017-06-24 14:10] LABS: LYMPHOCYTES % (MANUAL) 39 % (20-46); MONOCYTES % (MANUAL) 6 % (5-12)
--- NOTE | 2017-06-24 14:41 | NUR ---
PATIENT AWAKE IN BED. PATIENT DENIES PAIN. NO SIGNS OR SYMPTOMS OF ACUTE DISTRESS NOTED. CALL LIGHT WITHIN REACH. WILL CONTINUE TO MONITOR.
--- NOTE | 2017-06-24 15:58 | NUR ---
PATIENT AWAKE AND ALERT IN BED. FAMILY AT BEDSIDE. PATIENT DENIES PAIN. NO SIGNS OR SYMPTOMS OF ACUTE DISTRESS NOTED. CALL LIGHT WITHIN REACH. WILL CONTINUE TO MONITOR.
[2017-06-24 16:00] VITALS: BP 108/58
--- NOTE | 2017-06-24 19:31 | NUR ---
ENDORSED PLAN OF CARE TO PM RN. PATIENT IN STABLE CONDITION. NO SIGNS OR SYMPTOMS OF ACUTE DISTRESS NOTED.
--- NOTE | 2017-06-24 19:32 | NUR ---
RECEIVED REPORT FROM AM NURSE. PT RESTING IN BED, AOX4, ABLE TO VERBALIZE NEEDS. PT DENIES CHEST PAIN, SOB OR S/S OF ACUTE DISTRESS. BOTH IV ACCESS AND RIGHT IJ CENTRAL LINE ASYMPTOMATIC, PATENT AND INTACT. IVF INFUSING WELL. DISCUSSED AND REVIEWED PLAN OF CARE WITH PT. PT STATED "OK." ALL NEEDS MET. SAFETY MEASURES ENSURED. CALL LIGHT WITHIN REACH. WILL CONTINUE TO MONITOR.
[2017-06-24 20:00] VITALS: BP 127/75
[2017-06-24] MEDS ORDERED: INSULIN DETEMIR 100 UNITS/ML 10 ML VIAL SUBQ SCH ×2 (21:00)
--- NOTE | 2017-06-24 21:50 | NUR ---
INSULIN COVERAGE ADMINISTERED WITH EDUCATION. ADMINISTERED DUE MEDICATIONS WITH EDUCATION. PT STATED "OK." ALL NEEDS MET. IVF INFUSING WELL. SAFETY MEASURES ENSURED. CALL LIGHT WITHIN REACH. WILL CONTINUE TO MONITOR.
[2017-06-25] VITALS: BP 110/64
[2017-06-25] MEDS: BLOOD GLUCOSE MONITORING 1 DEV DEV FS SCH ×5 (00:54→16:32)
[2017-06-25] MEDS: INSULIN LISPRO SLIDING SCALE 100 UNITS/ML VIAL SUBQ PRN ×3 (01:03→17:19)
--- NOTE | 2017-06-25 01:04 | NUR ---
ADMINISTERED INSULIN COVERAGE WITH EDUCATION. PT STATED "OK." ALL NEEDS MET. IVF INFUSING WELL. SAFETY MEASURES ENSURED. CALL LIGHT WITHIN REACH. WILL CONTINUE TO MONITOR.
--- NOTE | 2017-06-25 04:15 | NUR ---
PT SLEEPING COMFORTABLY, AROUSABLE TO NAME. BLOOD SUGAR 94, NO S/S OF ACUTE DISTRESS. ALL NEEDS MET. IVF INFUSING WELL. SAFETY MEASURES ENSURED. CALL LIGHT WITHIN REACH. WILL CONTINUE TO MONITOR.
[2017-06-25] MEDS: LEVOTHYROXINE 0.075 MG TAB PO SCH (05:32)
[2017-06-25 06:44] LABS: BASOPHILS # (AUTO) 0.2 K/uL (0.00-0.22); BASOPHILS % (AUTO) 2.4 % (0.0-2.0); EOSINOPHILS # (AUTO) 0.5 K/uL (0-0.4); EOSINOPHILS % (AUTO) 7.2 % (0.0-4.0); HEMATOCRIT 31.3 % (36-52); HEMOGLOBIN 10.4 g/dL (12.0-18.0); LYMPHOCYTES # (AUTO) 1.9 K/uL (2.0-11.5); LYMPHOCYTES % (AUTO) 28.8 % (20.5-51.1); MEAN CORPUSCULAR HEMOGLOBIN 28 pg (27-31); MEAN CORPUSCULAR HGB CONC 33 g/dL (33-37); MEAN CORPUSCULAR VOLUME 85 fL (80-94); MONOCYTES # (AUTO) 0.7 K/uL (0.8-1.0); MONOCYTES % (AUTO) 10.2 % (1.7-9.3); NEUTROPHILS # (AUTO) 3.1 K/uL (1.8-7.7); NEUTROPHILS % (AUTO) 51.4 % (42.2-75.2); PLATELET COUNT (AUTO) 202 K/uL (140-450); RED BLOOD CELL COUNT(AUTO) 3.67 MIL/uL (4.20-6.10); RED CELL DISTRIBUTION WIDTH 12.9 % (11.6-13.7); WHITE BLOOD COUNT (AUTO) 6.4 K/uL (4.8-10.8)
--- NOTE | 2017-06-25 07:29 | NUR ---
ENDORSED PLAN OF CARE TO AM NURSE. CONDITION STABLE.
[2017-06-25 07:49] LABS: ANION GAP 14.2 (8-16); CARBON DIOXIDE 22.8 mmol/L (21-32); CREATININE 0.8 mg/dL (0.7-1.3)
[2017-06-25 07:54] LABS: MAGNESIUM 1.7 mg/dL (1.8-2.4); PHOSPHORUS 3.3 mg/dL (2.5-4.9)
[2017-06-25 08:00] VITALS: BP 123/72
--- NOTE | 2017-06-25 08:29 | NUR ---
RECEIVED REPORT FROM NIGHT NURSE, PT IS AAOX4 , ON ROOM AIR, RIGHT IJ TRIPLE LUMEN, IV TO RIGHT HAND 22G SALINE LOCK PATENT AND INTACT, SKIN INTACT, INITIAL ASSESMENT COMPLETED, REVIEWED PLAN OF CARE WITH PT PT VERBALIZED UNDERSTANDING, ALL SAFETY PRECAOUTIONS MET. CALL LIGHT WITHIN REACH, WILL CONTINUE TO MONITOR.
--- NOTE | 2017-06-25 08:30 | NUR ---
D50 GIVEN BLOOD SUGAR 35. WILL RECHECK BLOOD SUGAR.
[2017-06-25] MEDS ORDERED: INSULIN DETEMIR 100 UNITS/ML 10 ML VIAL SUBQ SCH ×3 (09:00)
[2017-06-25] MEDS: ATORVASTATIN 80 MG TAB PO SCH (09:43)
[2017-06-25] MEDS: ENALAPRIL 2.5 MG TAB PO SCH (09:44)
[2017-06-25] MEDS: buPROPion 75 MG TAB PO SCH (09:44)
[2017-06-25] MEDS: CARVEDILOL 12.5 MG TAB PO SCH (09:44)
[2017-06-25] MEDS: busPIRone 5 MG TAB PO SCH (09:44)
[2017-06-25] MEDS: clonazePAM 0.5 MG TAB PO SCH (09:46)
[2017-06-25] MEDS: FLUVOXAMINE MALEATE PO SCH (09:51)
--- NOTE | 2017-06-25 09:52 | NUR ---
DUE MEDICATIONS GIVEN, PT TOLERATED WELL, ALL NEEDS MET. WILL CONTINUE TO MONITOR
--- NOTE | 2017-06-25 11:22 | NUR ---
06/25/17 RD FOLLOW-UP ASSESSMENT COMPLETED PLEASE REFER TO NUTRITION ASSESSMENT UNDER CARE ACTIVITY FOR ESTIMATED NUTRITIONAL NEEDS. 1. CONTINUE 60G CONSISTENT CARBOHYDRATE DIET 2. RD TO FOLLOW-UP 3-5 DAYS, MODERATE RISK JEFFERSON VELAZQUEZ RD
--- NOTE | 2017-06-25 12:10 | NUR ---
CHECKED IN ON PT, PT RESTING IN BED, ALL NEEDS MET. WILL CONTINUE TO MONITOR.
[2017-06-25] MEDS: NACL 0.9% 1,000 ML IV SCH (14:03)
--- NOTE | 2017-06-25 14:20 | NUR ---
PT CURRENTLY ON PHONE, NO S/S OF DISTRESS NOTED. WILL CONTINUE TO MONITOR.
[2017-06-25] MEDS ORDERED: LEVEMIR SUBQ ×2 (15:25)
[2017-06-25] MEDS ORDERED: POTASSIUM CHLORIDE 10 MEQ TABER PO ONE (15:30)
[2017-06-25] MEDS ORDERED: MAGNESIUM OXIDE 400 MG TAB PO SCH (15:30)
[2017-06-25 16:00] VITALS: BP 114/70
--- NOTE | 2017-06-25 17:29 | NUR ---
ALL DISCHARGE PAPERWORK SIGNED, IV REMOVED TIP INTACT, CENTRAL LINE REMOVED, FOLLOW UP INFORMATION GIVEN, DISCHARGE EDUCATION GIVEN PT AND PT'S MOTHER VERBALIZED UNDERSTANDING. ALL PERSONAL BELONGINGS WITH PT,
--- NOTE | 2017-06-25 17:50 | NUR ---
PT WAS WALKED OUT TO FRONT LOBBY IN STABLE CONDITION.
== END 2017-06-25 17:40 | disposition home or self-care (01) | DRG 637 ==
LOC: MED 08:23 → MIC 10:51 → MTU 06-22 16:40
PROVIDERS: ADMIT Student in an Organized Health Care Education/Training Program; ATTEND Student in an Organized Health Care Education/Training Program
PROC: 02HV33Z Insertion of Infusion Device into Superior Vena Cava, Percutaneous Approach (ICD-10-PCS; principal; 2017-06-20)
DX: E10.10 Type 1 diabetes mellitus with ketoacidosis without coma (principal); N17.0 Acute kidney failure with tubular necrosis; R65.10 Systemic inflammatory response syndrome (SIRS) of non-infectious origin without acute organ dysfunction; D68.59 Other primary thrombophilia; E83.39 Other disorders of phosphorus metabolism; E83.51 Hypocalcemia; E86.0 Dehydration; F84.0 Autistic disorder; E87.5 Hyperkalemia; I10 Essential (primary) hypertension; E03.9 Hypothyroidism, unspecified; E78.5 Hyperlipidemia, unspecified; F32.9 Major depressive disorder, single episode, unspecified; Z79.4 Long term (current) use of insulin; R31.9 Hematuria, unspecified; F19.10 Other psychoactive substance abuse, uncomplicated; F41.1 Generalized anxiety disorder; D64.9 Anemia, unspecified; E87.6 Hypokalemia
CPT/HCPCS: 36415; 36600; 71010; 76770; 80048; 80053; 80305; 81001; 82009; 82803; 82947; 82948; 83036; 83605; 83735; 83880; 84100; 84436; 84439; 84443; 84479; 84484; 85025; 85610; 87040; 87081; 87086; 90732; 93005; 93925; 93970; 96361; 96365; 99285; C1758; J1642; J1644; J1815; J2060; J3475; J3480; J7030; J7042; Q0092